=== PATIENT | female | born 2005 | race Caucasian/White ===

== ENCOUNTER 2023-12-01 14:16 | Emergency (ER) | payer OTHER ==
[~2023-12-01] VITALS: Ht 152.4 cm; Wt 63.7 kg
[~2023-12-01 14:16] MED LIST: ABILIFY15 MG PO
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
[2023-12-01 15:10] VITALS: BP 94/80
== END 2023-12-01 15:10 | disposition home or self-care (01) ==
LOC: ED 14:16
DX: T25.222A Burn of second degree of left foot, initial encounter (principal); X19.XXXA Contact with other heat and hot substances, initial encounter; Z79.899 Other long term (current) drug therapy
CPT/HCPCS: 16020; 99283

== ENCOUNTER 2023-12-10 15:22 | Emergency (ER) | payer OTHER ==
[~2023-12-10] VITALS: Ht 152.4 cm; Wt 74.5 kg
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
[2023-12-10] MEDS ORDERED: CEPHALEXIN500 M1 PO (16:14)
[2023-12-10 16:53] VITALS: BP 108/68
== END 2023-12-10 16:53 | disposition home or self-care (01) ==
LOC: ED 15:22
DX: L03.116 Cellulitis of left lower limb (principal); F25.9 Schizoaffective disorder, unspecified; J45.909 Unspecified asthma, uncomplicated; F32.A Depression, unspecified; Z91.018 Allergy to other foods; Z79.899 Other long term (current) drug therapy
CPT/HCPCS: A9270

== ENCOUNTER 2024-04-26 14:36 | Emergency (ER) | payer OTHER ==
[~2024-04-26] VITALS: Ht 152.4 cm; Wt 67.8 kg
[~2024-04-26 14:36] MED LIST changes: +CEPHALEXIN500 M1 PO
[2024-04-26 15:14] LABS: BASOPHILS 0.7 % (0-2); EOSINOPHILS 1.7 % (0-6); HEMATOCRIT 41.8 % (35.0-50.0); HEMOGLOBIN 14.3 g/dL (12.0-18.0); LYMPHOCYTES 25.2 % (24-44); MCH 29.3 (27-36); MCHC 34.1 g/dl (30-36); MONOCYTES 7.2 % (0-12); NEUTROPHILS 65.2 % (39-80); PLATELET COUNT 381 K/uL (140-440); RBC 4.86 M/ul (4.3-5.7); RDW 13.8 (10.5-15.0)
[2024-04-26 15:37] LABS: ACETAMINOPHEN 0 ug/mL (10-30); ALBUMIN 4.5 g/dL (3.4-5.0); ALBUMIN/GLOBULIN RATIO 1.15 (1.1-2.4); ALCOHOL, MEDICAL <3 ng/dL (<3); ALKALINE PHOSPHATASE 97 U/L (46-116); ALT (SGPT) 30 U/L (14-59); ANION GAP 20.4 (7-21); AST (SGOT) 18 U/L (15-37); BILIRUBIN, TOTAL 0.7 ng/dL (0.2-1.0); BUN/CREATININE RATIO 8.69 (6.0-28.6); CALCIUM 9.4 mg/dL (8.5-10.1); CARBON DIOXIDE 19 mmol/L (21-32); CHLORIDE 102 mmol/L (98-107); CREATININE, SERUM 1.15 mg/dL (0.55-1.02); GLOMERULAR FILTRATION RATE,EST 70 mL/min (>60); POTASSIUM 3.4 mmol/L (3.5-5.1); PROTEIN, TOTAL 8.4 g/dL (6.4-8.2); SALICYLATE 2.7 mg/dL (2.8-20.0); TSH, 3RD GENERATION 1.332 uIU/mL (0.358-3.740); UREA NITROGEN 10 mg/dL (7-18)
[2024-04-26] MEDS ORDERED: LORazepam 1 MG TAB PO ONE (16:45)
[2024-04-26] MEDS ORDERED: diphenhydrAMINE HCL 50 MG/ML VIAL ONE (17:30)
[2024-04-26] MEDS ORDERED: LORazepam 2 MG/ML VIAL ONE (17:30)
[2024-04-26] MEDS ORDERED: diphenhydrAMINE HCL 50 MG/ML VIAL IM ONE (17:30)
[2024-04-26] MEDS ORDERED: HALOPERIDOL LACTATE 5 MG/ML VIAL ONE (17:30)
[2024-04-26] MEDS ORDERED: HALOPERIDOL LACTATE 5 MG/ML VIAL IM ONE (17:30)
[2024-04-26] MEDS ORDERED: LORazepam 2 MG/ML VIAL IM ONE (17:30)
[2024-04-27] MEDS ORDERED: LORazepam 2 MG/ML VIAL IM ONE (11:00)
[2024-04-27] MEDS ORDERED: OLANZapine 10 MG VIAL IM ONE (11:00)
[2024-04-27] MEDS ORDERED: ABILIFY10 MG PO (11:10)
[2024-04-27] MEDS ORDERED: TRAZODONE HCL50 MG PO (11:10)
[2024-04-27] MEDS ORDERED: HYDROXYZINE HCL25 MG PO (11:10)
[2024-04-27 11:29] VITALS: BP 114/68
== END 2024-04-27 11:27 | disposition home or self-care (01) ==
LOC: ED 14:36
PROVIDERS: Family Medicine
DX: F31.9 Bipolar disorder, unspecified (principal); Z91.018 Allergy to other foods
CPT/HCPCS: 36415; 80053; 80307; 84443; 84703; 85025; A9270-GY; G0480; J1200; J1630; J2060

== ENCOUNTER 2024-05-16 12:29 | Emergency (ER) | payer OTHER ==
[~2024-05-16] VITALS: Ht 152.4 cm; Wt 72.0 kg
[~2024-05-16 12:29] MED LIST changes: +ABILIFY10 MG PO; +HYDROXYZINE HCL25 MG PO; +TRAZODONE HCL50 MG PO
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
[2024-05-16 14:16] VITALS: BP 134/89
== END 2024-05-16 14:16 | disposition home or self-care (01) ==
LOC: ED 12:29
DX: T76.21XA Adult sexual abuse, suspected, initial encounter (principal); Z91.018 Allergy to other foods
CPT/HCPCS: 99284